=== PATIENT | male | born 1950 | race Caucasian/White ===

== ENCOUNTER → 2016-10-29 | Outpatient (CLI) | payer OTHER, BC ==
[2016-10-30 15:01] LABS: PSATOTAL 16.6 ng/mL (<=4.5)
[2016-10-30 15:39] LABS: FREE PSA/PSA RATIO SEE COMMENTS ratio (())
== END ==
LOC: LAB 09:36
PROVIDERS: ATTEND Urology
DX: C61 Malignant neoplasm of prostate (principal)
CPT/HCPCS: 36415; 84153; 84154; 84403

== ENCOUNTER → 2017-01-29 | Outpatient (CLI) | payer OTHER, BC | LOC: LAB 13:26 | PROVIDERS: ATTEND Nurse Practitioner Adult Health | DX: C61 Malignant neoplasm of prostate (principal) | CPT/HCPCS: 36415; 84153; 84403 ==

== ENCOUNTER 2018-06-18 09:11 | Observation (INO) ==
[2018-06-18] MEDS ORDERED: ONDANSETRON 4 MG/2 ML VIAL IVP PRN (09:21)
[2018-06-18] MEDS ORDERED: LIDOCAINE HCL 2 % 10 ML JELLY URO-JECT TOPICAL PRN (09:21)
[2018-06-18] MEDS ORDERED: LIDOCAINE W/ SODIUM BICARB 0.5 ML SYR SUBD PRN (09:21)
[2018-06-18] MEDS ORDERED: Sodium Chloride 0.9% 1,000 ML PRIMARY IV SCH ×2 (09:30→18:15)
[2018-06-18] MEDS ORDERED: INSULIN REGULAR, HUMAN 100 UNIT/1 ML - 3 ML SUBCUT ONE (11:00)
[2018-06-18] MEDS ORDERED: FUROSEMIDE 10 MG/1 ML - 2 ML VIAL IVP ONE (11:00)
[2018-06-18] MEDS ORDERED: Calcium Gluconate Inj 1,000 MG in Sodium Chloride 0.9% 100 ML IV ONE (11:01)
[2018-06-18] MEDS ORDERED: HYDROcodone-APAP 5 MG -325 MG TABLET PO PRN (11:02)
[2018-06-18] MEDS ORDERED: ALBUTEROL SULFATE 2.5 MG/3 ML NEB ONE (11:02)
[2018-06-18] MEDS ORDERED: Sodium Chloride 0.9% 1,000 ML PRIMARY IV ONE ×2 (11:07→11:10)
[2018-06-18] MEDS: MORPHINE SULFATE 2 MG/1 ML IVP PRN ×5 (12:22→23:27)
--- NOTE | 2018-06-18 13:58 | PDOC ---
HPI - History of Present Illness Date of Service: 06/18/18 Time of Service: 09:06 Chief Complaint: Metastatic prostate cancer History of Present Illness: The patient presents to our clinic with the known history of metastatic prostate cancer. He seen oncology in both [place] and [place]. He recently was started on a new chemotherapy drug. His metastatic cancer has been advancing quite rapidly recently. He has involvement that is known to be in the liver to be in the lymph nodes causing compression of his ureters which were then stented to be opened. In addition he has been unable to eat and drink normally and just feeling worse all the way around including mental status changes and weakness. His brought him to the clinic for placement of the [place] but due to his poor condition she is in agreement that he should be admitted to the hospital for IV fluids for clinical dehydration. He also has a lot of edema in and around the scrotum and his lower legs that is most likely due to a low albumin. We discussed admission for IV fluids gentle diuresis with albumin and monitoring of the [place] and his condition. He will continue his oral chemotherapy drugs from [place] and other medications as tolerated. After 24-hour observation and treatment will decide whether inpatient treatment should be continued or if he would like he can be discharged home. Obviously if he feels worse or the chemotherapy drug makes him ill we can consider hospice therapy as they have consider this already Past Medical History - Social History Other Social History: His Lavonne is a nurse at our facility - Medical / Surgical History Medical History: Metastatic prostate cancer. Recent ureteral stents placed for obstruction. Previous coronary artery disease. Radiation therapy to his prostate for cancer quite some time ago. Surgical History: See clinic notes Medication / Allergies Home Medications: Home Medications Medication Instructions Recorded Confirmed Type leuprolide 15 mg intramuscular kit 30 mg IM [id number] 04/28/17 04/24/18 History famotidine 20 mg tablet 20 mg PO BID #60 tab 03/13/18 04/24/18 Rx Aspirin/Calcium Carbonate/Mag 325 mg PO DAILY 03/16/18 04/24/18 History [Aspir-Mox 325 mg Tablet] ondansetron 4 mg disintegrating 4 mg PO TID PRN #30 tab 04/20/18 04/24/18 Rx tablet psyllium seed (sugar) oral powder 1 tbs PO QDAY 04/24/18 04/24/18 History polyethylene glycol 3350 17 17 g PO QDAY #255 g 04/28/18 04/28/18 Rx gram/dose oral powder cyclobenzaprine 10 mg tablet 10 mg PO Tid PRN #90 tab 05/25/18 Rx hydrocodone 5 mg-acetaminophen 325 1 tab PO Q4-6H PRN #120 tab 05/25/18 Rx mg tablet prochlorperazine maleate 10 mg 10 mg PO QID #120 tab 06/02/18 Rx tablet amlodipine 10 mg tablet 10 mg PO QDAY #90 tab 06/04/18 Rx linaclotide 145 mcg capsule 145 mcg Capsule#16 Samples 06/15/18 Sample furosemide 20 mg tablet 20 mg PO QAM PRN #30 tab 06/17/18 Rx nystatin 100,000 unit/gram topical 1 applic TOPICAL TID #30 g 06/17/18 Rx ointment nystatin 100,000 unit/gram topical 1 applic TOPICAL TID #30 g 06/17/18 Rx powder sildenafil (antihypertensive) 20 20 mg PO TID #90 tab 06/17/18 Rx mg tablet everolimus (antineoplastic) 10 mg 10 mg PO QDAY 06/18/18 06/18/18 History tablet Allergies/Adverse Reactions: Allergies Allergy/AdvReac Type Severity Reaction Status Date / Time acetaminophen [From Vicodin] Allergy Mild RASH Verified 04/24/18 13:14 hydrocodone [From Vicodin] Allergy Mild RASH Verified 04/24/18 13:14 adhesive tape Allergy rash Verified 04/24/18 13:14 Review of Systems - Constitutional Constitutional: POSITIVE: Other (Generalized fatigue and malaise and deconditioning) - EENT EENT: NEGATIVE: Sore Throat - Respiratory Respiratory: NEGATIVE: Cough - Cardiovascular Cardiovascular: NEGATIVE: Heart Racing, Palpitations - GI/ GI/: POSITIVE: Nausea, Vomiting, Constipation, Decreased Urination, Drinking Less, Eating Less, Abdominal Distention, Swollen Genital Area. NEGATIVE: Diarrhea, Abdominal Pain, Blood in Stool - MS/Skin/Lymph MS/Skin/Lymph: POSITIVE: Extremity Swelling, Other (Skin breakdown around the scrotum). NEGATIVE: Skin Rash - Neuro/Psych Neuro/Psych: POSITIVE: Weakness Exam - General Appearance Pediatric General Appearance: POSITIVE: Sleeping, Mild Distress, Lethargic - HEENT HEENT: POSITIVE: Head Inspection Nml, Eyes Inspection Nml. NEGATIVE: Scleral Icterus - Neck Neck: POSITIVE: Supple. NEGATIVE: No Masses - Respiratory Respiratory: POSITIVE: No Respiratory Distress - Cardiovascular Cardiovascular: POSITIVE: Tachycardia - Abdomen Additional Abdominal Details: His abdomen is distended with obvious ascites. It is not really tender acute but a little tender over the liver which is very hard from its metastasis. - Extremities Additional Extremities Details: Bilateral lower extremity edema. Edematous scrotum with breakdown around the edges. Edema around the penis. - Skin Skin: POSITIVE: Skin Rash (In scrotal area) - Neurological Neuro: POSITIVE: Weakness Results - Labs Labs - Last 24 Hours: See outpatient labs showing prerenal situation along with hyperkalemia. Assessment and Plan - Patient Problems (1) Hyperkalemia Current Visit: Yes Status: Acute Code(s): E87.5 - Hyperkalemia (2) Dehydration Current Visit: Yes Status: Acute Code(s): E86.0 - Dehydration (3) CAD (coronary artery disease) Current Visit: No Status: Acute Code(s): I25.10 - Atherosclerotic heart disease of [place] coronary artery without angina pectoris Qualifiers: Coronary Disease-Associated Artery/Lesion type: [place] artery [place] vs. transplanted heart: [place] heart Associated angina: without angina Qualified Code(s): I25.10 - Atherosclerotic heart disease of [place] coronary artery without angina pectoris; I25.10 - Atherosclerotic heart disease of [place] coronary artery without angina pectoris; I25.10 - Atherosclerotic heart disease of [place] coronary artery without angina pectoris (4) Prostate cancer Current Visit: No Status: Acute Code(s): C61 - Malignant neoplasm of prostate - Assessment / Plan Additional Assessment/Plan Details: We discussed the situation with the hospitalist. I will admit him under my name for observation. We'll start gentle fluid rehydration for what I believe is a prerenal status due to his poor by mouth intake. In addition we'll start some gentle diuresis the IV Lasix for his edema around his scrotum and legs. I think probably adding albumins going to be helpful as I think he's malnourished and probably has a low protein. In addition we will keep him comfortable and try to respect his wishes. He can at any time refused further treatment will be discharged home if he would like to pursue hospice as well Good communication with him and his will try to adhere to their wishes - Time/Visit Time Spent With Patient: 15-25 Minutes
[2018-06-18] MEDS: Sodium Chloride 0.9% 1,000 ML PRIMARY IV SCH ×2 (14:30→23:27)
[2018-06-18 15:15] LABS: BUN/CREATININE RATIO 26.52 (6-20)
[2018-06-18] MEDS ORDERED: DEXTROSE 50%-WATER SYRINGE 50 ML SYRINGE IVP ONE (15:17)
[2018-06-18] MEDS ORDERED: D5-1/2NS 1,000 ML with Sodium Bicarb 150 MEQ IV ONE ×2 (15:21)
[2018-06-18] MEDS ORDERED: SODIUM BICARBONATE 8.4% - 50 ML VIAL ONE (16:14)
[2018-06-18] MEDS ORDERED: SODIUM BICARBONATE 8.4% - 50 ML ADULT SYRINGE IVP ONE (16:42)
[2018-06-18] MEDS ORDERED: SODIUM BICARBONATE 8.4% - 50 ML VIAL IV ONE (16:45)
[2018-06-18 17:20] LABS: Hemoglobin [HGB] 12.6 g/dL (14.0-18.0); MEAN CORPUSCULAR HEMOGLOBIN 30.4 PG (27-31); MEAN CORPUSCULAR VOLUME 84.5 FL (80-90); MEAN PLATELET VOLUME 10.4 FL (7.4-12.2); RED BLOOD COUNT 4.14 10^6/uL (4.70-6.10)
[2018-06-18 17:25] LABS: BUN/CREATININE RATIO 25.86 (6-20)
[2018-06-18 17:33] LABS: PLATELET MORPHOLOGY COMMENT NORMAL MORPHOLOGY (NORM); RBC MORPHOLOGY COMMENT SEE COMMENTS (NORM); WBC MORPHOLOGY COMMENT NORMAL MORPHOLOGY (NORM)
[2018-06-18 17:34] LABS: BAND NEUTROPHILS % 0 % (0-10); BASOPHILS % (MANUAL) 0 % (0-1); EOSINOPHILS % (MANUAL) 0 % (0-8); MONOCYTES % (MANUAL) 3 % (0-12); NEUTROPHILS % (MANUAL) 87 % (50-80)
[2018-06-18] MEDS ORDERED: LORazepam 2 MG/1 ML VIAL IVP PRN (18:13)
[2018-06-18] MEDS ORDERED: DIAZEPAM 10 MG/2 ML (5 MG/1 ML) CARPUJECT IVP PRN (18:13)
[2018-06-18] MEDS ORDERED: Morphine Drip 250mg/250ml 250 MG/250 ML PLAST..BAG IV SCH (18:15)
[2018-06-18] MEDS ORDERED: SCOPOLAMINE HYDROBROMIDE 1.5 MG - 1 EACH PATCH TRANSDERM SCH (18:15)
--- NOTE | 2018-06-18 18:21 | PDOC(PROG) ---
Date of Service: 06/18/18 Time of Service: 18:15 Interval History: Patient seen and evaluated several times today. Discussed with patient's , and daughter. The patient has widely metastatic prostate cancer and is actually on a drug approved for her kidney cancer but in trial stages for prostate cancer due to genetic workup on this prostate cancer. The patient took a turn for the worse here over the last week, has not been able to eat or drink very much, and has had increasing amounts of pain. His mental status has been waxing and waning at home. He is brought in for evaluation and I discussed with his primary physician, Dr. Rico, please see his history and physical exam for further details. I was asked to evaluate the patient to see if there is anything we can do from a hospitalist perspective to help the patient, in particular with the patient benefit from a paracentesis. We evaluated the patient's labs, have tried hydration, temporizing measures for hyperkalemia, but the family and the patient are not interested in any further, aggressive measures, they do not want CT scans to see if there is any obstruction of metallic stents (ureteral stents), they're not interested in preventing coronary event with hyperkalemia but would like to try to get family members in with the last daughter or granddaughter coming in by about 2 AM this evening. There was some talk about whether or not nephrostomy tubes would be a good idea to pursue to let this chemotherapy drug have more time to work, but the patient adamantly refused. The patient's agrees. The patient's daughter agrees. They want treatment for primary symptoms of pain and discomfort only after the family members arrive. I told the patient, his , and his daughter that I could try to keep the potassium low with temporizing measures or lower to try and buy some time for family to arrive. They were agreeable to that and that alone. Objective : Data - Labs CBC and BMP: 06/18/18 17:13 06/18/18 17:13 Objective : Exam - General General Appearance: Cooperative, Average Body Hiatus Additional General Exam Details: Vital Signs - Last Taken Temperature 98.1 F 06/18/18 10:04 Pulse Rate 92 06/18/18 11:22 Respiratory Rate 18 06/18/18 11:22 Blood Pressure 128/73 06/18/18 10:04 Pulse Ox 94 06/18/18 09:50 - Eye Eye Exam: No Scleral Icterus - ENT ENT Exam: Mucous Membranes Dry - Respiratory Respiratory Exam: Clear to Auscultation - Bilaterally, Breathing Non Labored - Cardiovascular Cardiovascular Exam: RRR, No Murmur, No Clicks, No Gallops, No Rubs, No JVD - GI/Abdominal GI/Abdominal Exam: Normal Bowel Sounds, Non Tender, Non Distended, Soft, Positive for Ascites - Rectal Rectal Exam: Deferred - External Exam: Deferred Exam: Deferred - Extremities Extremities Exam: No Clubbing Present, No Cyanosis Present, +2 Edema - Neurological Neurological Exam: Alert, No Facial Droop, Speech Intact / Clear - Integumentary Integumentary Exam: Dry, Intact Additional Integumentary Exam Details: Poor skin turgor Assessment and Plan - Patient Problems (1) Acute renal failure Current Visit: Yes Status: Acute Code(s): N17.9 - Acute kidney failure, unspecified Qualifiers: Acute renal failure type: unspecified Qualified Code(s): N17.9 - Acute kidney failure, unspecified (2) Hyperkalemia Current Visit: Yes Status: Acute Code(s): E87.5 - Hyperkalemia (3) Prostate cancer Current Visit: Yes Status: Acute Code(s): C61 - Malignant neoplasm of prostate - Assessment / Plan Additional Assessment/Plan Details: This patient has widespread metastatic prostate cancer that has been refractory to treatments and is on its last leg in terms of therapy options. The patient actually has been using a drug, only one dose thus far, that is experimental in the setting under the direction of their urologic oncologist at [facility]. The patient is very clear that he wants no further interventions and no longer wants treatment. He asks only that we treat his primary symptoms of pain and discomfort. He is aware that he will of this disease regardless of any intervention we can provide. The patient and his family are agreeable to temporizing measures for hyperkalemia and we have been doing this with bicarbonate, albuterol, Lasix, IV fluids, with minimal results thus far but no further blood monitoring will be done. Potassium did improve slightly from 6.8-6.5 and creatinine has not changed. I think there is obstruction probably from lymphatic spread of prostate cancer. Tonight at around 2 AM or so, we will start morphine ip per the patient's request and per the 's request. In an effort to treat her primary symptoms of pain and discomfort. The patient and his family understand that he will of this disease.
[2018-06-18] MEDS: Hypromellose/Glycerin/PEG 400 Ophth Soln 15 ML DROPS EACH EYE SCH ×3 (20:07→23:36)
[2018-06-19] MEDS: Hypromellose/Glycerin/PEG 400 Ophth Soln 15 ML DROPS EACH EYE SCH ×5 (00:40→08:15)
[2018-06-19] MEDS ORDERED: Keys-Morphine Palliative Care ONE (01:09)
[2018-06-19] MEDS: Sodium Chloride 0.9% 1,000 ML PRIMARY IV SCH (08:15)
[2018-06-19] MEDS ORDERED: LANSOPRAZOLE 30 MG SOLUTAB PO SCH (09:00)
[2018-06-19] MEDS ORDERED: POLYETHYLENE GLYCOL 3350 17 GM POWDER PO SCH (09:00)
--- NOTE | 2018-06-19 09:24 | DCSUMMARY ---
Hospitalization Summary Admit Date: 06/18/2018 Discharge Date: 06/19/18 Primary Diagnosis:: metastatic prostate cancer Hospital Course: This is a very pleasant 68-year-old male who's been battling prostate cancer. The last 10 years. His widespread metastatic disease including lymphatic spread. His pain significantly worsened. He was admitted, found to have kidney failure and significant hyperkalemia. This was acute renal failure in the setting of metallic stents, probable dehydration, but most likely obstructive uropathy with lymphatic spread and compression of the ureters. He was not interested in any further testing or procedures such as nephrostomy tubes. The patient knew that he would regardless of therapy provided for his prostate cancer or if he was on medications for primary symptoms of pain and discomfort and he requested medications to treat primary symptoms of pain and discomfort. His family will also requested the same. We did do temporizing measures for his hyperkalemia to allow his family to arrive. After his family arrived, he was placed on a morphine drip and passed on on 06/19/2018. Exam - Vitals Vital Signs: Vital Signs Upon entry into the room, the patient had no spontaneous respirations. His pupils are dilated, fixed, and unresponsive to light. He has no response and is declared on 06/19/2018 Data Peritnent Studies: Laboratory Results 06/18/18 06/18/18 06/18/18 14:42 17:13 17:13 WBC 7.74 RBC 4.14 L Hgb 12.6 L Hct 35.0 L MCV 84.5 MCH 30.4 MCHC 36.0 RDW Std Deviation 47.8 RDW Coeff of Malachi 16.3 H Plt Count 239 MPV 10.4 Neutrophils % (Manual) 87 H Band Neutrophils % 0 Lymphocytes % (Manual) 10 Monocytes % (Manual) 3 Eosinophils % (Manual) 0 Basophils % (Manual) 0 Metamyelocytes % Not Reportable Myelocytes % Not Reportable Promyelocytes % Not Reportable Blast Cells Not Reportable WBC Morphology Comment Normal morphology Plt Morphology Comment Normal morphology RBC Morph Comment See comments Sodium 133 L 133 L Potassium 6.8 H* 6.5 H* Chloride 104 105 Carbon Dioxide 16 L 17 L Anion Gap 13 11 BUN 122 H 119 H Creatinine 4.6 H 4.6 H Estimated GFR 13 13 BUN/Creatinine Ratio 26.52 H 25.86 H Glucose 93 133 H Calculated Osmolality 314.0 H 315.0 H Calcium 9.4 9.1 Patient Problems - Patient Problem List (1) Prostate cancer Current Visit: Yes Status: Acute Code(s): C61 - Malignant neoplasm of prostate Category: Medical (2) Acute renal failure Current Visit: Yes Status: Acute Code(s): N17.9 - Acute kidney failure, unspecified Qualifiers: Acute renal failure type: unspecified Qualified Code(s): N17.9 - Acute kidney failure, unspecified Category: Medical (3) Hyperkalemia Current Visit: Yes Status: Acute Code(s): E87.5 - Hyperkalemia Category: Medical
[2018-06-19 11:32] VITALS: BP 128/73; RESP 10; TEMP 98.1; O2SAT 94
== END 2018-06-19 07:05 | disposition expired ==
LOC: INTOOBSV 09:41 → MED/SURG 09:41
PROVIDERS: ADMIT Family Medicine; ATTEND Family Medicine